=== PATIENT | male | born 1965 | race Caucasian/White ===

== ENCOUNTER → 2016-10-15 | Outpatient (CLI) | payer OTHER | END | disposition home or self-care (01) | LOC: RAD 10-10 16:00 | DX: M25.78 Osteophyte, vertebrae (principal); M12.88 Other specific arthropathies, not elsewhere classified, other specified site; M50.30 Other cervical disc degeneration, unspecified cervical region; R93.7 Abnormal findings on diagnostic imaging of other parts of musculoskeletal system | CPT/HCPCS: 72128 ==

== ENCOUNTER 2016-11-26 05:31 | Inpatient (IN) | payer OTHER ==
[~2016-11-26] VITALS: Ht 188 cm; Wt 154.0 kg
[~2016-11-26 05:31] MED LIST: ATORVASTATIN CA40 MG PO; CLONAZEPAM1 MG PO; GABAPENTIN400 MG PO; INVOKANA300 MG PO; LASIX20 MG PO; LISINOPRIL10 MG PO; LO-DOSE ASPIRIN81 M2 PO; LYRICA50 MG PO; METOPROLOL TART25 MG PO; OXYCODONE-APAP1 EACH PO; TRAMADOL HCL50 MG PO
[2016-11-26 06:36] VITALS: BP 136/74
[2016-11-26 06:44] LABS: POINT-OF-CARE METER ID UU13113694
[2016-11-26 11:46] LABS: POINT-OF-CARE METER ID UU13113675
[2016-11-26 14:00] VITALS: BP 113/53
[2016-11-26 16:46] LABS: POINT-OF-CARE METER ID UU14208753
[2016-11-26 16:57] VITALS: BP 117/56
[2016-11-26 19:40] VITALS: BP 115/56
[2016-11-26 21:51] LABS: POINT-OF-CARE METER ID UU14208753
[2016-11-26 23:48] VITALS: BP 114/56
[2016-11-27 03:54] VITALS: BP 115/57
[2016-11-27 06:27] LABS: POINT-OF-CARE METER ID UU14208753
[2016-11-27 07:46] VITALS: BP 118/55
[2016-11-27 11:41] LABS: POINT-OF-CARE METER ID UU14208753
[2016-11-27 16:12] VITALS: BP 106/53
[2016-11-27 17:30] LABS: POINT-OF-CARE METER ID UU14149397
[2016-11-27 22:21] LABS: POINT-OF-CARE METER ID UU14208753
[2016-11-28 00:58] VITALS: BP 99/52
[2016-11-28 06:56] LABS: POINT-OF-CARE METER ID UU14208753
[2016-11-28 08:17] VITALS: BP 125/61
[2016-11-28] MEDS ORDERED: CYCLOBENZAPRINE10 MG PO (08:56)
[2016-11-28] MEDS ORDERED: ENDOCET 5-3251 EACH PO (08:56)
[2016-11-28] MEDS ORDERED: FENTANYL1 EAC5 TD (08:56)
[2016-11-28 10:59] LABS: POINT-OF-CARE METER ID UU14149397
[2016-11-28 16:16] VITALS: BP 107/71
[2016-11-28 16:37] LABS: POINT-OF-CARE METER ID UU14149397
== END 2016-11-28 18:26 | disposition home or self-care (01) | DRG 29 ==
LOC: 2SOUTH 05:31 → 3EAST 13:29 → SDC 14:47 → EDSTATUS 14:47 → 2SOUTH 14:49 → 3EAST 11-28 18:26
PROVIDERS: Neurological Surgery
DX: G95.29 Other cord compression (principal); I25.10 Atherosclerotic heart disease of native coronary artery without angina pectoris; E11.9 Type 2 diabetes mellitus without complications; M51.04 Intervertebral disc disorders with myelopathy, thoracic region; M51.24 Other intervertebral disc displacement, thoracic region; Z95.1 Presence of aortocoronary bypass graft; G47.30 Sleep apnea, unspecified; E66.9 Obesity, unspecified; Z68.41 Body mass index [BMI] 40.0-44.9, adult; E66.01 Morbid (severe) obesity due to excess calories; I10 Essential (primary) hypertension; M25.661 Stiffness of right knee, not elsewhere classified; M99.02 Segmental and somatic dysfunction of thoracic region; E78.5 Hyperlipidemia, unspecified; M40.204 Unspecified kyphosis, thoracic region; Z95.0 Presence of cardiac pacemaker; Z98.1 Arthrodesis status; Z87.891 Personal history of nicotine dependence
CPT/HCPCS: 72070; 72080; 76000; 82948; 86900; 86901; 94799; C1713; J0330; J0690; J1100; J1170; J1580; J1815; J2250; J2405; J2710; J2930; J3010; J3370; J3480; S0020